=== PATIENT | male | born 2000 | race Caucasian/White ===

== ENCOUNTER 2021-09-04 12:36 | Emergency (ER) | payer BC, OTHER ==
[~2021-09-04] VITALS: Ht 177.8 cm; Wt 72.6 kg
[~2021-09-04 12:36] MED LIST: VICODIN 5-5001 EACH PO
[2021-09-04 12:46] VITALS: BP 123/78
[2021-09-04] MEDS ORDERED: NAPROSYN500 MG PO (13:50)
== END 2021-09-04 14:00 | disposition home or self-care (01) ==
LOC: ER 12:36
DX: M25.562 Pain in left knee (principal); F17.210 Nicotine dependence, cigarettes, uncomplicated; Z88.0 Allergy status to penicillin